=== PATIENT | female | born 1990 | race Hispanic/Latino ===

== ENCOUNTER 2017-02-10 23:09 | Emergency (ER) | payer OTHER ==
[~2017-02-10] VITALS: Ht 157.5 cm; Wt 88.5 kg
[~2017-02-10 23:09] MED LIST: FERRALET 901 TAB PO; LABETALOL HYDR100 MG PO; LASIX20 MG PO; MOTRIN 600 MG600 MG PO; PERCOCET 325 MG1 TA2 PO; PRENATAL VITAMI1 TA4 PO; REGLAN10 MG PO; SERTRALINE HYDR25 MG PO; ZOLOFT25 MG PO
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
[2017-02-11 00:15] LABS: ABSOLUTE BASOPHIL COUNT 0 /CUMM (0.0-0.2); ABSOLUTE EOSINOPHIL COUNT 0.1 /CUMM (0.0-0.7); ABSOLUTE GRANULOCYTE CT 2.5 /CUMM (1.4-6.5); ABSOLUTE LYMPH COUNT 2.7 /CUMM (1.2-3.4); ABSOLUTE MONOCYTE COUNT 0.3 /CUMM (0.10-0.60); BASOPHIL % 0.5 % (0.0-2.0); EOSINOPHIL % 1.9 % (0-5); GRANULOCYTE % 44.4 % (42.2-75.2); HEMATOCRIT 42.1 % (37-47); MEAN CORPUSCULAR HGB 29.9 PG (27.0-31.0); MEAN CORPUSCULAR HGB CONC 33.9 G/DL (33.0-37.0); MEAN CORPUSCULAR VOLUME 88.2 FL (81.0-99.0); MEAN PLATELET VOLUME 9.2 FL (7.4-10.4); PLATELET COUNT 225 /CUMM (130-400); RBC DISTRIBUTION WIDTH 14.1 % (11.5-14.5); RED BLOOD CELL CT 4.78 /CUMM (4.20-5.40); WHITE BLOOD CELL COUNT 5.6 /CUMM (4.8-10.8)
--- NOTE | 2017-02-11 02:20 | Procedure ---
Minor Surgical Procedure Note Date of Procedure: 02/11/17 Procedure Note: History: Pt is a 26 yo F who presented to the ED with a self-inflicted laceration (from a clean, serrated kitchen knife) on the dorsal aspect of her R forearm. On exam, she has about a 10cm crescent-shaped laceration with edges spaced about 10cm apart at the most central aspect. Depth involves skin, subcutanous tissue and terminates at muscle. There is evidence of a ruptured tendon (? extensor digitorum) which is visualized distally, but not proximally. All other muscles appear to be intact. Bleeding is well controlled. No focal sensory or motor deficits were appreciated. Diagnosis: R forearm laceration, 10cm Procedure: Intermediate repair of R forearm laceration, 10cm Description of procedure: Pt was positioned for optimal intervention. She was prepped and draped in the usual sterile fashion. 1% xylocaine with epinephrine was injected along the wound edeges using a 25g needle. Anesthetic effect was confirmed with pinch testing. The wound was copiously irrigated with sterile water. No debris or foreign matter was identified. Exploration of the deep wound revealed the distal edge of what appears to be the extensor digitorum tendon, but the proximal edge was not visualized, so the tendon was therefore not repaired. A series of interrupted 3-0 vicryl sutures were placed in the deep subcutaneous layer. A subsequent layer of inverted interrupted 3-0 vicryl sutures were placed in the deep dermis to futher approximate the wound. 4 3-0 nylon simple interrupted sutures were placed in the dermis spaced about 2-3 cm apart. The remainder of the wound was closed with a series of simple interrupted 4-0 vicryl sutures. Bacitracin, gauze and lcarice wrap dressing was applied. Pt tolerated the procedure well. She was instructed on the need for elevation and activity restrictions. Follow up with hand surgeon this week for further evaluation. Suture removal in 10 days.
[2017-02-11 06:07] VITALS: BP 164/97
--- NOTE | 2017-02-11 11:24 | ED PSYCH CRISIS CONSULTATION ---
Crisis Consult Basic Assessment Date of Consult: 02/11/17 Responsible Person/Accompanied By: Insurance Authorization: Insurance #1: Insurance name: [employer]SIE WHEAT Phone number: Policy number: [id number] Group number: [id number] Authorization number: n/a ED Provider: Patient's ED Provider: YUNIOR BROWN MD Primary Care Physician: Patient's PCP: ARABELLA BEATTY PCP's Current Psychiatrist: none Chief Complaint: Psychiatric Related Complaint Patient's Quote: "I just want to go home and be with my baby" Present Illness: Pt is a 26 yo old female brought to the ED by her last night after she had cut herself on the left forearm. Her cut did require sutures when she got to the ED. Pt. was also intoxicated with a BAL of 231 at 11:40pm. This marine cargo surveyor evaluated pt this morning. Pt was alert and tearful. She said that she had become upset last night, first after her [id number] - texted her , making her derogatory comments about her weight and calling her "lazy". She then got into an argument with her . Pt. reports that after her went into the bedroom to go to sleep with their one year old son, she took a kitchen knife and cut her forearm. Pt reports that she was not trying to kill herself, but was feeling "unappreciated" and trying to get attention. Pt reports that she was intoxicated at the time having drunk 10 beers and 10 jagermeister shots throughout the evening, starting at around 5:00pm. Pt. reports that she used to cut herself when she was 12 year old after she was taken away from her mother and put into foster care. She said that most of the time, she used to cut to release emotional pain, but one time at 12 years old, she did try to kill herself by cutting her wrists. Pt. reports that she has not been in psychiatric treatment since she was an adolescent, but does take Prozac, prescribed by her PCP. Pt said that she and her have been arguing frequently for the past year and that for the past three weeks she has been staying with her mother most of the time. Pt. says that what happened last night was "out of the blue" and that she did not mean to cut herself so deep. She reports that she does not use alcohol everyday and that she only drank that much last night because it was [employer] [place] Day and she was partying. Pt reports that her one year old son was sleeping in the other room when she cut herself. Pt. denies any current suicidal thoughts, says that she does not want to be admitted and says that she will follow up with outpatient treatment. This marine cargo surveyor also talked to pt's who confirms pts report of the events of last night. He said that he does not believe that pt. was trying to kill herself and that he felt safe picking her up from the ED and taking her home with him. He said that he will assist in getting pt connected with treatment and that he will be with her the rest of the weekend. This marine cargo surveyor also called pt's mother and told her about the events of last night. Pt's mother also said that she will support pts participation in treatment. Patient's Address: [address] [place] [address] Other Phone Number: Who Do You Live With? Patient and family Family/Informants Interviewed: (Ferdinand Yun) [phone] Allergies - Coded Allergies: Penicillins (HIVES 03/08/16) Current Medications - Scheduled Medications Furosemide (Lasix) 20 MG TAB 1 TAB PO DAILY swelling #7 TAB Prescribed by JESSIE SNEED MD on 01/16/16 IRON CARB,GL/FA/B12/C/DOCUSATE (Ferralet 90 Tablet) 1 TAB TAB 1 TAB PO DAILY anemia #90 TAB Prescribed by JESSIE SNEED MD on 01/16/16 LABETALOL HCL (Labetalol Hydrochloride) 100 MG TAB 1 TAB PO BID high blood pressure #60 TAB Prescribed by JESSIE SNEED MD on 01/17/16 [id number] ( Vitamins) 1 TAB TAB 1 TAB PO DAILY VITAMINS ( Reported) Entered as Reported by AMISH CHU on 09/27/15 0651 SERTRALINE HCL (Sertraline Hydrochloride) 25 MG TAB 25 MG PO 2200 anxiety #90 TAB Prescribed by JESSIE SNEED MD on 01/16/16 Scheduled PRN Medications Ibuprofen (Motrin 600 MG Tab) 600 MG TAB 800 MG PO Q6P PRN PAIN #60 TAB Prescribed by JESSIE SNEED MD on 01/16/16 OXYCODONE HCL/ACETAMINOPHEN (Percocet 5-325 MG Tablet) 325 MG/5 MG TAB 1-2 TAB PO Q4P PRN PAIN SCALE 9-10 #30 TAB Prescribed by JESSIE SNEED MD on 01/16/16 Laboratory Results: Laboratory Tests 02/11/17 0701: Urine Opiates Screen 2189.00 H, Methadone Screen < 40, Barbiturate Screen < 60, Ur Phencyclidine Scrn < 6.00, Amphetamines Screen < 100, U Benzodiazepines Scrn < 85, Urine Cocaine Screen < 50, Urine Cannabis Screen > 80.00 H 02/10/17 2340: Anion Gap 18 H, Estimated GFR > 60, BUN/Creatinine Ratio 20.0, Glucose 131 H, Calcium 9.4, Total Bilirubin 0.5, AST 24, ALT 30, Alkaline Phosphatase 64, Total Protein 8.0, Albumin 4.8, Globulin 3.2, Albumin/Globulin Ratio 1.5, Total Beta HCG NEGATIVE, CBC w Diff NO MAN DIFF REQ, RBC 4.78, MCV 88.2, MCH 29.9, RDW 14.1 , MPV 9.2, Gran % 44.4, Lymphocytes % 48.1, Monocytes % 5.1, Eosinophils % 1.9, Basophils % 0.5, Absolute Granulocytes 2.5, Absolute Lymphocytes 2.7, Absolute Monocytes 0.3, Absolute Eosinophils 0.1, Absolute Basophils 0, PUBS MCHC 33.9, Serum Alcohol 231.0 Past History Past Medical History Neurological: 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 Cardiovascular: NONE Respiratory: NONE Gastrointestinal: NONE Hepatic: NONE Renal: NONE Musculoskeletal: NONE Psychiatric: depression Endocrine: NONE Blood Disorders: NONE Cancer(s): NONE 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 Dates of Treatment when pt was 12/13 yo Response to Treatment unk Diagnosis by History: unk Substance Use/Abuse History Drug Use/Abuse 1 Substances Used/Abused Yes Substance Used/Abused Alcohol First Use unk Last Used last night How much used/taken 10 beers/ 10 shots How often unk For how long unk Route of use oral Drug Use/Abuse 2 Substances Used/Abused Yes Substance Used/Abused Marijuana First Use unk Last Used unk How much used/taken unk How often unk For how long unk Route of use smoking Substance Abuse Treatment Substance Abuse Treatment Past Substance Abuse [place] No Inpatient Treatment No Outpatient Treatment No Comments: n/a Current Mental Status Mental Status Orientation: Person, Place, Situation Affect: Anxious, Angry, Sad Speech: WNL Neuro-vegetative: WNL Appearance Appearance- Dress/Hygiene: somewhat disheveled, bandage on right forearm Behaviors Thought Process: WNL Thought Content: WNL Memory: WNL Insight: Fair SI/HI Risk Assessment Past Suicidal Ideation/Attempts Yes (1 attempt @ 12yo by slit wrist) Current Suicidal Ideation/Att No Past Homicidal Ideation/Att: No Current Homicidal Ideation/Attempts No Degree of Intent: None Danger To: none Gravely Disabled: none Risk Factors: chronic/serious med cond., high anxiety/distress, history of suicide atmpts, substance abuse Lethality Ratin (mild) PTSD Checklist PTSD Done? patient declined ED Management Sitter: Yes Restraints: No DSM5/PS Stressors/Medical Prob Diagnosis' (DSM 5, Stressors, Medical): F32.9 - Unspecified Depression. Stressors: new baby, family conflicts. marital conflicts. Medical - Meniere's Disease. Current GAF: 50 Comments: anxiety, marital conflicts, no SI Departure Disposition Psych Medical Clearance Date: 02/11/17 Medically Cleared at: 0800 Time Started: 0800 Time Ended: 0900 Psychiatrist Consulted: Rudy Raza MD Date Disposition Established: 02/11/17 Time Disposition Established: 09 Plan for Disposition - Modality: Outpatient Facility: Follow-up Appt Date: 02/14/17 Follow-Up Appt Time: 1030 Contact: [facility] Rationale for Disposition: Pt denies any suicidal intent to her cutting her arm last night, she denies any current suicidal thoughts and she does not want to be admitted. She is willing to attend an intake at [facility]. Pt's says that he feels safe to take pt home and will be with her this weekend. Pt is not at current risk of harm to self or others. Additional Instructions: none Referrals ARABELLA BEATTY (PCP/Family)
--- NOTE | 2017-02-11 11:49 | ED PSYCHIATRIST/APRN CONSULT ---
Psychiatrist/POULTRY FIELD SERVICE TECHNICIAN ED Consult Assessment and Plan: Park Yun is a 26-year-old white female who was brought to the emergency room last night after cutting herself deeply while intoxicated. The cuts required sutures. Patient's blood alcohol level last night 20 minutes before midnight was 231 mg/dL the patient was evaluated by the broommaking supervisor i.e. I reviewed the notes of the broommaking supervisor and I interviewed the patient. Findings a 26-year-old who presented to the emergency room following as a deep cuts to her forearm requiring sutures while intoxicated following an argument with her which followed an argument with her [id number]. The patient was calm and cooperative she was interviewed and crisis intervention area she was wearing a hospital gown the hospital bandaging was evident on her forearm because of the suturing. She seemed to be in good spirits and smiled appropriately. She denied that she had any intention of killing herself. She did acknowledge that she did engage in self cutting in the past but not in a very long time. She attributes the impulsive behavior to being intoxicated and having to fights back to back one would have [id number] and one with him on with her . She denied a sense of hopelessness denied a sense of worthlessness denied wish in . She reported that her anxiety level is manageable. She showed good attention and concentration she was alert and oriented she was coherent there was no thought disorder nor delusional thinking she denied hallucinations. Diagnostic impression Mood disorder not otherwise specified most likely disruptive mood dysregulation disorder Borderline traits Alcohol use disorder mild) (binge drinking) The patient reported that she was in counseling between the ages of 13 and 15 because it was acquired by [facility] at the time. The patient reported that more recently she hasn't been seeing a psychiatrist and was getting Zoloft from her primary care physician. The patient reported that she had good response to the Zoloft on that in the past at a dose of 125 mg. She reported that she went off the Zoloft because of her . Currently she is neither breast-feeding nor planning another . She She reported that she was never inpatient psychiatric unit she has never. She has never needed detoxification never been in a rehabilitation program and she was not so that interested in intensive outpatient treatment. Recommendations: I discussed options with the patient's and I recommended that she follows up with a psychiatrist or a nurse practitioner following her discharge and to raise the dose of the sertraline (Zoloft to 100 mg daily.
[2017-02-11] MEDS ORDERED: NEURONTIN300 M1 PO (14:47)
[2017-02-12] MEDS ORDERED: DOXYCYCLINE HY100 M2 PO (11:17)
== END 2017-02-11 12:39 ==
LOC: ERH 23:09
PROVIDERS: Emergency Medicine
DX: S51.819A Laceration without foreign body of unspecified forearm, initial encounter (principal); F10.129 Alcohol abuse with intoxication, unspecified; Z72.89 Other problems related to lifestyle; W26.0XXA Contact with knife, initial encounter
CPT/HCPCS: 80307; 96374; 96375; G0463; G0480; J0690

== ENCOUNTER 2017-02-11 14:21 | Emergency (ER) | payer OTHER ==
[~2017-02-11] VITALS: Ht 157.5 cm; Wt 86.2 kg
[2017-02-11 14:24] VITALS: BP 161/106
[2017-02-11] MEDS ORDERED: NEURONTIN300 M1 PO (14:47)
--- NOTE | 2017-02-11 14:48 | ED UPPER/LOWER EXTREMITY COMPL ---
History of Present Illness General Chief Complaint: Upper Extremity Problem Stated Complaint: SWOLLEN/NUMB RT FOREARM S/P SUTURES Source: patient Exam Limitations: no limitations Vital Signs & Intake/Output Vital Signs & Intake/Output Vital Signs Date Time Temp Pulse Resp B/P Pulse O2 O2 Flow FiO2 Ox Delivery Rate 02/11 1424 96.3 86 16 161/106 98 Room Air Allergies Coded Allergies: Penicillins (HIVES 03/08/16) Reconcile Medications Furosemide (Lasix) 20 MG TAB 1 TAB PO DAILY swelling Gabapentin (Neurontin) 300 MG CAPSULE 1 CAP PO DAILY NERVE PAIN Ibuprofen (Motrin 600 MG Tab) 600 MG TAB 800 MG PO Q6P PRN PAIN IRON CARB,GL/FA/B12/C/DOCUSATE (Ferralet 90 Tablet) 1 TAB TAB 1 TAB PO DAILY anemia LABETALOL HCL (Labetalol Hydrochloride) 100 MG TAB 1 TAB PO BID high blood pressure OXYCODONE HCL/ACETAMINOPHEN (Percocet 5-325 MG Tablet) 325 MG/5 MG TAB 1-2 TAB PO Q4P PRN PAIN SCALE 9-10 [id number] ( Vitamins) 1 TAB TAB 1 TAB PO DAILY VITAMINS ( Reported) SERTRALINE HCL (Sertraline Hydrochloride) 25 MG TAB 25 MG PO 2200 anxiety Triage Note: PT WAS HERE EARLIER FOR SUTURES TO HER RIGHT ARM. PT STATES HER ARM FEELS NUMB AND TINGING. Triage Nurses Notes Reviewed? yes Onset: Abrupt Duration: hour(s):, constant Timing: recent history Severity: moderate, severe No Modifying Factors: none : No Patient currently breastfeeds: No HPI: 26-year-old female comes into emergency room with complaints of numbness and tingling to her right hand after being discharged a few hours ago here in the emergency room. Patient had self-inflicted a wound on her right forearm last night. Patient had been seen by crisis and cleared to go home. Patient had extensive damage to tendons and laceration went to the muscle and fascia. Surgery close the wound. Patient denies any suicidal or homicidal ideation. She is here because she had some tingling in her hand and felt nervous. Denies any vomiting. Patient reports that she feels sweaty and nervous. Past History Travel History Traveled to [place] past 21 day No Medical History Any Pertinent Medical History? 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 No Review of Systems Review of Systems Constitutional: Reports: no symptoms. EENTM: Reports: no symptoms. Respiratory: Reports: no symptoms. Cardiovascular: Reports: no symptoms. Gastrointestinal/Abdominal: Reports: no symptoms. Genitourinary: Reports: no symptoms. Musculoskeletal: Reports: see HPI. Skin: Reports: see HPI. Neurological/Psychological: Reports: no symptoms. Hematologic/Endocrine: Reports: no symptoms. Immunological: Reports: no symptoms. All Other Systems: Reviewed and Negative Physical Exam Physical Exam General Appearance: well developed/nourished Head: atraumatic Eyes: Bilateral: normal appearance. 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 Started on Neurontin for pain. Patient likely severed some nerves with her laceration. She does not have any motor deficit at the moment. Sharp and dull sensation intact. No signs of infection to the wound. Patient is going to return in 2 days for wound check and follow- up with plastic surgery next week. There is no suicidal or homicidal ideation and she was just cleared by crisis for a few hours ago. Departure Departure Disposition: HOME OR SELF CARE Condition: Stable Clinical Impression Primary Impression: Visit for wound check Secondary Impressions: Neuropathic pain Referrals: CARO FRY,MICHAEL ORDOÑEZ,ARABELLA (PCP/Family) Additional Instructions: Take Neurontin as prescribed. Follow-up with plastic surgeon provided. Return if any concerns worsening symptoms. return in another 2 days for a wound recheck. Please go over all results of today's visit with your primary care doctor. Contact your primary care doctor to let them know you were here in the emergency room. There may be nonspecific findings which may not be related to your visit today here in the emergency room but may require further evaluation and chronic monitoring by your primary care doctor. If you had a laceration today the chance of foreign body always remains. You should follow-up with your primary care doctor for recheck in 3-5 days for a wound check. If you had an x-ray done there is a chance that a fracture could have been missed on initial read and you should follow-up with your primary care doctor for repeat x-rays if symptoms persist. If your blood pressure was elevated here in the emergency room please have rechecked by her primary care doctor within the next 48 hours by your primary care doctor. If you were prescribed a narcotic here in the emergency room or any type of controlled substances you're not allowed to drive while taking this medication or operate any type of heavy machinery. Narcotics can make you feel lightheaded dizziness nausea and can cause constipation. You may need to belt picker a stool softener. Thank you for choosing [facility] emergency room. Please return to the emergency room immediately if you have any other concerns worsening of symptoms. Departure Forms: Customer Survey General Discharge Information Prescriptions: Current Visit Scripts Gabapentin (Neurontin) 1 CAP PO DAILY #30 CAP
[2017-02-12] MEDS ORDERED: DOXYCYCLINE HY100 M2 PO (11:17)
== END 2017-02-11 14:56 ==
LOC: ERH 14:21
DX: M79.2 Neuralgia and neuritis, unspecified (principal); Z48.02 Encounter for removal of sutures

== ENCOUNTER → 2017-02-17 | Day surgery (SDC) | payer OTHER ==
[2008-06-23 19:37] VITALS: BP 151/85
[~2017-02-17] MED LIST changes: +DOXYCYCLINE HY100 M2 PO; +NEURONTIN300 M1 PO
[2017-02-17 11:03] LABS: ABSOLUTE BASOPHIL COUNT 0 /CUMM (0.0-0.2); ABSOLUTE EOSINOPHIL COUNT 0.1 /CUMM (0.0-0.7); ABSOLUTE GRANULOCYTE CT 4.3 /CUMM (1.4-6.5); ABSOLUTE LYMPH COUNT 1.6 /CUMM (1.2-3.4); ABSOLUTE MONOCYTE COUNT 0.4 /CUMM (0.10-0.60); BASOPHIL % 0.6 % (0.0-2.0); EOSINOPHIL % 1.6 % (0-5); HEMATOCRIT 40.2 % (37-47); MEAN CORPUSCULAR HGB 29.2 PG (27.0-31.0); MEAN CORPUSCULAR HGB CONC 33.2 G/DL (33.0-37.0); MEAN CORPUSCULAR VOLUME 87.9 FL (81.0-99.0); MEAN PLATELET VOLUME 8.8 FL (7.4-10.4); PLATELET COUNT 233 /CUMM (130-400); RBC DISTRIBUTION WIDTH 13.8 % (11.5-14.5); RED BLOOD CELL CT 4.57 /CUMM (4.20-5.40); WHITE BLOOD CELL COUNT 6.4 /CUMM (4.8-10.8)
[2017-02-17 11:14] LABS: GRANULOCYTE % 67.8 % (42.2-75.2)
--- NOTE | 2017-02-17 15:14 | Operative Report ---
Operative/Inv Procedure Report Surgery Date: 02/17/17 Name of Procedure: Exploration right forearm Repair flexor carpi radialis, flexor superficialis, brachial radialis right forearm use of operating microscope Pre-Operative Diagnosis: Self-inflicted laceration right forearm, Post-Operative Diagnosis: Same Estimated Blood Loss: scant Surgeon/Office Support Associate: ABDELRAHMAN REA MD Anesthesia: general endotracheal tube Operative/Procedure Note Note: Patient was counseled with regard to the procedure the alternatives risks and expected outcomes as well as to expiration of a self-inflicted knife wound to the right forearm. Wrist flexion talked about exploration repairing what was possible. We talked about definite visible scarring will result from the injury there is a risk of infection bleeding pain and stiffness for postoperative splinting and rehabilitation. Results were given or implied. Today she finds signed an informed consent. She was taken to the operating room placed supine on the table. Venodyne boots are placed and then general endotracheal anesthesia was established intravenous antibiotic given. The right upper extremity was prepped and draped in usual sterile fashion. A tourniquet was placed on the proximal arm were sterile prep and drape the incision was opened. Sutures were removed. Skin edges were freshened completely. She was then turned to the deeper structures where the injury as described above. Median anti-brachial cutaneous nerve was not identifiable. 3-0 nylon was used in the flexor carpi radialis chromics were used in the other muscle bundle injuries as described above. The radial nerve was completely exposed but uninjured. The lateral antebrachial cutaneous nerve was intact and exposed. Use of operating microscope cannot identify a reasonably repairable median anti-cutaneous brachial nerve. Wound was irrigated and the fascia was closed in anatomic layers to provide a riding substrate healing. The wrist was splinted in flexion. In closing 2 layers. Dictation
== END ==
LOC: STS 01:46
PROVIDERS: Surgery Plastic and Reconstructive Surgery
DX: S56.221A Laceration of other flexor muscle, fascia and tendon at forearm level, right arm, initial encounter (principal); W26.0XXA Contact with knife, initial encounter; S51.811A Laceration without foreign body of right forearm, initial encounter
CPT/HCPCS: 36415; 81025; J0131; J1630; J2250; J2405; J3250